=== PATIENT | male | born 1985 | race Caucasian/White ===

== ENCOUNTER 2017-01-04 11:30 | Emergency (ER) | payer OTHER ==
[2017-01-04] MEDS ORDERED: DEXAMETHASONE 4 MG TAB PO ONE (13:00)
--- NOTE | 2017-01-04 13:10 | EDPHY ---
General - History Smoking Status: Never smoked Narrative: CHIEF COMPLAINT: Low back pain HISTORY OF PRESENT ILLNESS: patient was performing squat exercises yesterday morning when he felt a sudden onset of pain in the low back while in a deep squat. The pain was moderate to severe. Radiates to the left thigh. No numbness or tingling of the extremities. No saddle anesthesia. No incontinence of bowel or bladder. No weakness. There is no position of comfort is in severe , constant pain. No alleviating factors. Every movement hurts. No other associated complaints or modifying factors. No previous back injury. No medical diagnoses of any kind. REVIEW OF SYSTEMS: Ten systems reviewed and are negative unless otherwise noted in the HPI EXAMINATION General Appearance: Alert, no distress Cardiovascular: Pulses normal throughout. Brisk cap refill Neurological: A&O, sensory symmetric, strength symmetric . Symmetric patellar reflexes. Skin: Warm and dry, no rash Back: Moderate tenderness to the soft tissue of the lumbar region. There is no bony tenderness. No step-off, crepitus or deformity. Range of motion limited by pain. Extremities: Nontender, no pedal edema . Lower extremity range of motion symmetric Psychiatric: Mood and affect normal DIFFERENTIAL DIAGNOSES: Including but not limited to lumbago, lumbar radiculopathy, lumbar fracture, lumbar discopathy MDM: 1:00 p.m. acute low back pain with left-sided radiculopathy. This occurred while doing a squat exercise yesterday. No saddle anesthesia. No incontinence of bowel or bladder. No motor weakness. No abnormality on examination. Lumbar x-ray has been ordered for completeness, but I have a very low suspicion for fracture. He is neuro intact in no acute distress but with significant pain. Drove himself here, thus I did not order any pain medication at this time. there is no evidence of acute cord compression or cauda equina by history or examination. 3:30 p.m. no acute abnormality in the lumbar x-ray as determined by me. He is neurovascular intact distally. Mechanism is low. Discharged home with steroid therapy, short course of muscle relaxers, short course of pain medication. Additionally I would like him to take 2 Aleve twice a day or ibuprofen 800 mg every 8 hours for the next 5 days and stop. He is comfortable with this plan and discharged home to follow up with primary care physician. He is to decrease his activity significantly as needed for pain. Return to ER for worsening pain, saddle anesthesia, incontinence of bowel or bladder, Weakness of lower extremities,retention of bowel or bladder. ED Precautions: Worsening pain. Erythema, edema, cyanosis, pallor, paresthesia or anesthesia. SUPERVISION: This patient was independently evaluated without the aide of supervising physician. (Mukund Gilbert) Medical Decision Making: The patient was evaluated and managed by the physician certified ophthalmic assistant. I have reviewed this chart and I agree with the findings and plan of care as documented , as indicated by my signature. I am the secondary supervising physician. ( Joyce Russo) - Objective Vital Signs: Initial Vital Signs Temperature (C) 36.4 C 01/04/17 11:54 Heart Rate 60 01/04/17 11:54 Respiratory Rate 6 L 01/04/17 11:54 Blood Pressure 122/79 H 01/04/17 11:54 O2 Sat (%) 97 01/04/17 11:54 O2 Delivery Mode Room Air Allergies/Adverse Reactions: No Known Allergies Allergy (Unverified 01/04/17 11:58) Home Medications: Medication Instructions Recorded Cyclobenzaprine [Flexeril 10 MG 10 mg PO TID PRN #15 tab 01/04/17 (*)] oxyCODONE HCL/ACETAMINOPHEN 1 each PO Q4-6PRN PRN #15 tablet 01/04/17 [Percocet 5-325 mg Tablet] predniSONE [Deltasone] 60 mg PO DAILY #12 tablet 01/04/17 Medications Given: Discontinued Medications Dexamethasone (Decadron) 8 mg PO EDNOW ONE Stop: 01/04/17 13:01 Last Admin: 01/04/17 13:12 Dose: 8 mg Departure - Departure Disposition: Home, Routine, Self-Care Clinical Impression: Lumbar radiculopathy, acute Acute low back pain Qualifiers: Back pain laterality: bilateral Sciatica presence: with sciatica Sciatica laterality: sciatica of right side Qualified Code(s): M54.41 - Lumbago with sciatica, right side Condition: Good Instructions: Low Back Strain (ED), Acute Low Back Pain (ED), Lumbar Radiculopathy (ED) Additional Instructions: Heating pad, rest, ibuprofen 6-800 every 8 hours for 3-5 days. Pain medication and muscle relaxants as needed. Follow up with primary care physician or Orthopedics for definitive care. Return to ER for worsening pain, numbness of the saddle, weakness of the lower extremities or difficulty urinating or having a bowel movement Referrals: Lillian Linda MD [Primary Care Provider] - As per Instructions Prescriptions: Cyclobenzaprine [Flexeril 10 MG (*)] 10 mg PO TID PRN #15 tab PRN Reason: Spasms oxyCODONE HCL/ACETAMINOPHEN [Percocet 5-325 mg Tablet] 1 each PO Q4-6PRN PRN # 15 tablet PRN Reason: Pain, Breakthrough predniSONE [Deltasone] 60 mg PO DAILY #12 tablet
[2017-01-04 15:59] VITALS: BP 128/78; PULSE 70; RESP 14; TEMP 98.4; O2SAT 94
== END 2017-01-04 15:58 | disposition home or self-care (01) ==
DX: M54.16 Radiculopathy, lumbar region (principal); M54.41 Lumbago with sciatica, right side

== ENCOUNTER → 2019-02-23 | Outpatient (CLI) | payer BC | LOC: FIMAGING 11:58 | PROVIDERS: ATTEND Family Medicine Sports Medicine | DX: S93.402A Sprain of unspecified ligament of left ankle, initial encounter (principal) ==